=== PATIENT | female | born 1960 | race Caucasian/White ===

== ENCOUNTER → 2017-02-13 | Outpatient (CLI) | payer OTHER ==
[~2017-02-13] MED LIST: CALC1CAP8 PO; MULT-658 PO
== END | disposition home or self-care (01) ==
LOC: STAR 09:57
PROVIDERS: ATTEND Orthopaedic Surgery
DX: Z02.9 Encounter for administrative examinations, unspecified (principal)

== ENCOUNTER 2017-02-17 09:34 | Day surgery (SDC) | payer OTHER ==
[2017-02-13 10:27] VITALS: BP 142/84
[~2017-02-17] VITALS: Ht 160 cm; Wt 93.7 kg
[~2017-02-17 09:34] MED LIST changes: +BUPIVACAINE/PF 0.5% ONE; +EPINEPHRINE 1 MG/ML, 1ML ONE
[2017-02-17] MEDS ORDERED: LACTATED RINGERS 1,000 ML IV SCH (10:11)
[2017-02-17 10:13] VITALS: BP 142/84
[2017-02-17] MEDS ORDERED: FENTANYL PF 100 MCG/2ML ONE ×2 (10:22→11:44)
[2017-02-17] MEDS ORDERED: MIDAZOLAM 1 MG/ML, 2ML ONE (10:22)
[2017-02-17] MEDS ORDERED: LIDOCAINE 1%, 2ML SQ PRN (10:30)
[2017-02-17] MEDS ORDERED: LIDOCAINE/PF 1.5%-EPI 1:200K, 30ML ONE (10:33)
[2017-02-17] MEDS ORDERED: CEFAZOLIN 1,000 MG ONE (10:44)
[2017-02-17] MEDS ORDERED: PROPOFOL 10 MG/ML, 20ML ONE (10:44)
[2017-02-17] MEDS ORDERED: KETOROLAC 30 MG/1 ML ONE (10:44)
[2017-02-17] MEDS ORDERED: ONDANSETRON 2MG/ML, 2ML ONE (10:44)
[2017-02-17] MEDS ORDERED: DEXAMETHASONE 4 MG/ML, 1ML ONE (10:44)
[2017-02-17] MEDS ORDERED: MIDAZOLAM 1 MG/ML, 2ML IV PRN (11:00)
[2017-02-17] MEDS ORDERED: METOCLOPRAMIDE 5 MG/ML, 2ML IV PRN (11:00)
[2017-02-17] MEDS ORDERED: OXYcodone 5 MG/5 ML ORAL.SOL UDC PO PRN (11:00)
[2017-02-17] MEDS ORDERED: hydrALAzine 20 MG/ML, 1ML IV PRN (11:00)
[2017-02-17] MEDS ORDERED: ONDANSETRON 2MG/ML, 2ML IVPush PRN (11:00)
[2017-02-17] MEDS ORDERED: ACETAMINOPHEN 325 MG TABLET PO PRN (11:00)
[2017-02-17] MEDS ORDERED: MEPERIDINE/PF 25MG/0.5ML IVPush PRN (11:00)
[2017-02-17] MEDS ORDERED: HYDROmorphone 1 MG/ML, 1ML IV PRN (11:00)
[2017-02-17] MEDS ORDERED: ALBUTEROL/IPRATROPIUM 2.5MG/0.5MG, 3 ML NPPB PRN (11:00)
[2017-02-17] MEDS ORDERED: PROMETHAZINE 25 MG/ML, 1ML IV PRN (11:00)
[2017-02-17] MEDS ORDERED: LABETALOL 5MG/ML, 20ML IV PRN (11:00)
[2017-02-17] MEDS ORDERED: ACETAMINOPHEN 325 MG TABLET ONE (11:29)
[2017-02-17] MEDS ORDERED: OXYcodone 5 MG/5 ML ORAL.SOL UDC ONE (11:29)
[2017-02-17] MEDS ORDERED: ACETAMINOPHEN 650 MG/20.3 ML UDC ONE (11:29)
[2017-02-17] MEDS: FENTANYL PF 100 MCG/2ML IV PRN ×3 (11:45→12:05)
== END 2017-02-17 13:43 ==
LOC: OUT 09:34
PROVIDERS: ATTEND Orthopaedic Surgery
DX: M65.861 Other synovitis and tenosynovitis, right lower leg (principal); M94.261 Chondromalacia, right knee; S83.231A Complex tear of medial meniscus, current injury, right knee, initial encounter; S83.281A Other tear of lateral meniscus, current injury, right knee, initial encounter; G47.30 Sleep apnea, unspecified; Z87.39 Personal history of other diseases of the musculoskeletal system and connective tissue; X58.XXXA Exposure to other specified factors, initial encounter; Y93.89 Activity, other specified; Y92.89 Other specified places as the place of occurrence of the external cause; Y99.8 Other external cause status
CPT/HCPCS: 29880; J0171; J0690; J1100; J1885; J2250; J2405; J2704; J3010; J3490; J7120